=== PATIENT | male | born 2000 | race Caucasian/White ===

== ENCOUNTER 2023-10-26 17:47 | Outpatient (CLI) | payer OTHER, SELFPAY | END 2023-10-26 17:48 | disposition home or self-care (01) | PROVIDERS: PCP Family Medicine; Visit Provider Family Medicine | DX: Z00.00 Encounter for general adult medical examination without abnormal findings (principal); R03.0 Elevated blood-pressure reading, without diagnosis of hypertension; F41.9 Anxiety disorder, unspecified; D61.818 Other pancytopenia; Z11.3 Encounter for screening for infections with a predominantly sexual mode of transmission; Z13.6 Encounter for screening for cardiovascular disorders | CPT/HCPCS: 80048; 80061; 86703; 87491; 87591 ==

== ENCOUNTER 2024-09-04 21:53 | Emergency (ER) | payer OTHER, SELFPAY ==
[2024-09-04 22:08] VITALS: BP 152/109; PULSE 113; RESP 22; TEMP 37.4; O2SAT 97; BMI 26.5
--- NOTE | 2024-09-04 22:58 | ED.PSYCH ---
HPI - Psych General Date Seen: 09/04/24 <Talon Sands MD - Last Filed: 09/06/24 08:31> Chief Complaint: Psychiatric Problem/Disorder <Talon Sands MD - Last Filed: 09/06/24 08:31> Stated Complaint: mental health <Talon Sands MD - Last Filed: 09/06/24 08:31> Time Seen by Provider: 09/04/24 22:11 <Talon Sands MD - Last Filed: 09/06/24 08:31> Source: patient, family, RN notes reviewed and old records reviewed <Talon Sands MD - Last Filed: 09/06/24 08:31> Mode of arrival: ambulatory <Talon Sands MD - Last Filed: 09/06/24 08:31> Limitations: no limitations <Talon Sands MD - Last Filed: 09/06/24 08:31> History of Present Illness HPI Narrative: Patient is a 24-year-old [employer] student, brought in by his mother, over increasingly bizarre behavior over the past 10 days to 2 weeks. 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 At that point he did comment to her that he may end at all, by using a combination of alcohol and melatonin. He did convince her enough that he could go back to campus, where he lives with his 2 roommates. He has been drinking alcohol a fair bit over the past few weeks, although it is unknown exactly how much it was. 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 Here he has very stands insult thoughts, pressured speech admits to me he was suicidal 2-3 days ago with because his roommates were to with him he never thought about committing suicide. He tells me he predicted this the [employer] score, and also that the [employer] kick her Jason Bullock will come here to talk to him. Understands that there is something wrong, and is willing to give blood and urine in fact he offered to give a sperm sample also. He has voluntary Past history of anxiety, and depression with a suicidal gesture when he was 11 years old, which he was hospitalized at [facility] when he tried to the choke himself to with the cord from a joystick, after his father of cancer. 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 Was initially yelling in the waiting room, but then calmed down. Mother is interviewed, she is very concerned about his increasingly bizarre behavior, she has never witnessed this before from him, no family history of bipolar disorder, the maternal father however had some issues where he was on medication but they all said that was just because he was in [place]. <Talon Sands MD - Last Filed: 09/06/24 08:31> MD complaint: altered mental status <Talon Sands MD - Last Filed: 09/06/24 08:31> Onset (ago): week(s) <Talon Sands MD - Last Filed: 09/06/24 08:31> Duration: constant, changing over time and getting worse <Talon Sands MD - Last Filed: 09/06/24 08:31> History of same: No <Talon Sands MD - Last Filed: 09/06/24 08:31> Relieving factors: none <Talon Sands MD - Last Filed: 09/06/24 08:31> Exacerbating factors: none <Talon Sands MD - Last Filed: 09/06/24 08:31> Context: significant life stressor <Talon Sands MD - Last Filed: 09/06/24 08:31> Associated psychiatric symptoms: suicidal ideation, racing thoughts and delusions <Talon Sands MD - Last Filed: 09/06/24 08:31> Associated symptoms: denies other symptoms <Talon Sands MD - Last Filed: 09/06/24 08:31> Treatments prior to arrival: none <Talon Sands MD - Last Filed: 09/06/24 08:31> If self harm: admits thoughts of self harm and has plan <Talon Sands MD - Last Filed: 09/06/24 08:31> Related Data Home Medications: Previous Rx's ?Medication ?Instructions ?Recorded sertraline 50 mg tablet (Zoloft) 50 mg PO QDAY #30 tabs 10/26/23 <Talon Sands MD - Last Filed: 09/06/24 08:31> Allergies/Adverse Reactions: Allergies Allergy/AdvReac Type Severity Reaction Status Date / Time No Known Drug Allergies Allergy Unverified 11/17/23 10:13 <Talon Sands MD - Last Filed: 09/06/24 08:31> Review of Systems Status of ROS: Reports: 10 or more systems reviewed and unremarkable except as noted in History and below <Talon Sands MD - Last Filed: 09/06/24 08:31> PFSH PFSH Social History: Social History Little interest or pleasure in doing things: not at all Feeling down, depressed, or hopeless: not at all <Talon Sands MD - Last Filed: 09/06/24 08:31> Exam Narrative: Exam Narrative: On examination with nurse Iwona present, he follows commands good, alert oriented x3, GCS is 15/15, nose time in place. Pupils are equal round reactive to light no scleral icterus redness there is no nystagmus, no evidence of head injury or bruising noted over his cranial region, is TMs are normal bilaterally, good hydration status, neck is supple no evidence of meningismus no lymphadenopathy, thyroid normal midline palpable not enlarged, chest is good air entry bilaterally with no wheezing crackles noted, easy respirations, heart sounds no clicks murmurs or gallops, abdomen is soft there is no organomegaly, scaphoid, bowel sounds are normal, no CVA tenderness no evidence of any tremor, moves all extremities independently and well, no evidence on the skin of any signs of IV drug use, Pressured speech, with tangential thoughts, and thinking that the [employer] kicker is going to come here.. Given my exam and hx and pending lab tests if ok, with reasonable certainity there is a low chance that this problem is caused by a physical or chemical reason. Thus the patient is medically cleared. <Talon Sands MD - Last Filed: 09/06/24 08:31> Const: Vital Signs, click to edit/add: Vital Signs - 24 hr 09/04/24 22:08 09/05/24 01:06 Temperature 99.3 F Pulse Rate [Left P ulse Oximeter] 113 H 84 Respiratory Rate 22 18 Blood Pressure [Ri ght Upper Arm] 152/109 H 114/78 Pulse Oximetry 97 97 Oxygen Delivery Me thod Room Air Room Air <Talon Sands MD - Last Filed: 09/06/24 08:31> Vital Signs, click to edit/add: Vital Signs - 24 hr 09/04/24 22:08 09/05/24 01:06 Temperature 99.3 F Pulse Rate [Left P ulse Oximeter] 113 H 84 Respiratory Rate 22 18 Blood Pressure [Ri ght Upper Arm] 152/109 H 114/78 Pulse Oximetry 97 97 Oxygen Delivery Me thod Room Air Room Air <Zaid Rodgers MD - Last Filed: 09/05/24 03:00> Documenting provider has reviewed patient's vital signs: yes <Talon Sands MD - Last Filed: 09/06/24 08:31> Course Reevaluation(s) Time of Reevaluation #1: 02:57 <Zaid Rodgers MD - Last Filed: 09/05/24 03:00> Reevaluation #1: Patient accepted in sign-out at change of shift. Patient has been accepted to [facility] with plan for transfer in the morning. <Zaid Rodgers MD - Last Filed: 09/05/24 03:00> Vital Signs Vital signs: Initial Vital Signs Temperature 99.3 F 09/04/24 22:08 Temperature Source Temporal Artery Scan 09/04/24 22:08 Pulse Rate 113 H 09/04/24 22:08 Pulse Rhythm Regular 09/04/24 22:08 Respiratory Rate 22 09/04/24 22:08 Blood Pressure 152/109 H 09/04/24 22:08 Blood Pressure Mean 123 H 09/04/24 22:08 Blood Pressure Position Sitting 09/04/24 22:08 Pulse Oximetry 97 09/04/24 22:08 Oxygen Delivery Method Room Air 09/04/24 22:08 Vital Signs Temperature 99.3 F 09/04/24 22:08 Pulse Rate 113 H 09/04/24 22:08 Respiratory Rate 22 09/04/24 22:08 Blood Pressure 152/109 H 09/04/24 22:08 Pulse Oximetry 97 09/04/24 22:08 Oxygen Delivery Method Room Air 09/04/24 22:08 Temperature 97.7 F 09/05/24 07:40 Pulse Rate 86 09/05/24 07:40 Respiratory Rate 18 09/05/24 07:40 Blood Pressure 122/68 09/05/24 07:40 Pulse Oximetry 99 09/05/24 07:40 Oxygen Delivery Method Room Air 09/05/24 07:40 <Talon Sands MD - Last Filed: 09/06/24 08:31> Initial Vital Signs Temperature 99.3 F 09/04/24 22:08 Temperature Source Temporal Artery Scan 09/04/24 22:08 Pulse Rate 113 H 09/04/24 22:08 Pulse Rhythm Regular 09/04/24 22:08 Respiratory Rate 22 09/04/24 22:08 Blood Pressure 152/109 H 09/04/24 22:08 Blood Pressure Mean 123 H 09/04/24 22:08 Blood Pressure Position Sitting 09/04/24 22:08 Pulse Oximetry 97 09/04/24 22:08 Oxygen Delivery Method Room Air 09/04/24 22:08 Vital Signs Temperature 99.3 F 09/04/24 22:08 Pulse Rate 113 H 09/04/24 22:08 Respiratory Rate 22 09/04/24 22:08 Blood Pressure 152/109 H 09/04/24 22:08 Pulse Oximetry 97 09/04/24 22:08 Oxygen Delivery Method Room Air 09/04/24 22:08 Temperature 97.7 F 09/05/24 07:40 Pulse Rate 86 09/05/24 07:40 Respiratory Rate 18 09/05/24 07:40 Blood Pressure 122/68 09/05/24 07:40 Pulse Oximetry 99 09/05/24 07:40 Oxygen Delivery Method Room Air 09/05/24 07:40 <Zaid Rodgers MD - Last Filed: 09/05/24 03:00> Medications Administered Medications: Discontinued Medications Generic Name Dose Route Start Last Admin Trade Name Freq PRN Reason Stop Dose Admin Olanzapine 10 mg 09/04/24 22:57 09/04/24 23:15 Olanzapine 5 Mg/Ml Inj IM 09/04/24 22:58 10 mg ONCE ONE Administration <Talon Sands MD - Last Filed: 09/06/24 08:31> Discontinued Medications Generic Name Dose Route Start Last Admin Trade Name Freq PRN Reason Stop Dose Admin Olanzapine 10 mg 09/04/24 22:57 09/04/24 23:15 Olanzapine 5 Mg/Ml Inj IM 09/04/24 22:58 10 mg ONCE ONE Administration <Zaid Rodgers MD - Last Filed: 09/05/24 03:00> MDM - Psych MDM Narrative Medical decision making narrative: Multiple differential diagnoses were considered for altered mental status. The life-threatening differential diagnosis considered include: Meningitis/encephalitis, bacteremia, subdural, cerebrovascular accident, SAH, and hypertensive encephalopathy. Other differential diagnosis included include medication effect, hypoxia, hypoglycemia, hypercalcemia, hypo or hypernatremia, hypothyroidism, hepatic encephalopathy, carbon monoxide poisoning, UTI, pneumonia, depression, seizure, as well as other etiologies. Differential diagnosis includes but is not limited life-threatening diagnosis is of severe depression with suicidal plan, chemical intoxication with suicidal ideation and risk of self-harm, schizoaffective disorder with risk of self-harm, bipolar disorder with severe depressive phase and risk of self-harm, personality disorder with risk of self-harm, depression due to hyperthyroidism, metabolic derangement, or CARPENTRY TEACHER abnormality new Patient agreed for blood tests and urine, I explained to him about medications after discussion with him a medications he was willing to take some I think IM Zyprexa would be a fine choice here. We will endeavor to get placement for him, I will sign him over to my partner oncoming for further disposition and review of the laboratory test <Talon Sands MD - Last Filed: 09/06/24 08:31> Differential Diagnosis Differential diagnosis: Likely acute psychosis, chronic schizophrenia, suicidal ideation, bipolar disorder, depression, drug-induced psychotic disorder and acute anxiety <Talon Sands MD - Last Filed: 09/06/24 08:31> Medical Records Attestation: I reviewed the patient's medical records. <Talon Sands MD - Last Filed: 09/06/24 08:31> Medical records narrative: There is a history of anxiety, he was prescribe Zoloft in the past but never took this according to his mother. <Talon Sands MD - Last Filed: 09/06/24 08:31> Lab Data Labs: Lab Results 09/04/24 09/04/24 09/04/24 Range/Units 22:55 23:10 23:51 WBC 9.25 (4.50-11.00) K/uL RBC 5.22 (4.30-5.90) m/uL Hgb 15.2 (13.5-17.5) gm/dL Hct 43.3 (37.0-53.0) % MCV 83 (80-100) fL MCH 29 (26-34) pg MCHC 35 (32-36) gm/dL RDW Coeff of Lynsey 13.0 (11.5-15.5) % Plt Count 239 (140-440) K/uL Neut % (Auto) 72.5 H (42.0-72.0) % Lymph % (Auto) 15.7 L (20-44) % [place] % (Auto) 10.6 (0.0-11.0) % Eos % (Auto) 0.0 (0.0-7.0) % Baso % (Auto) 0.2 (0.0-3.0) % Neut # (Auto) 6.70 (1.7-7.0) K/uL Lymph # (Auto) 1.50 (0.90-2.90) K/uL [place] # (Auto) 1.00 H (0.00-0.90) K/UL Eos # (Auto) 0.00 (0.00-0.50) K/uL Baso # (Auto) 0.02 (0.00-0.30) K/uL Abs Immat Gran (auto) 0.09 (0.00-0.30) K/uL Imm/Tot Granulo (auto) 1.0 % Sodium 136 (135-149) mmol/L Potassium 3.4 L (3.6-5.1) mmol/L Chloride 100 (96-114) mmol/L Carbon Dioxide 24 (20-32) mmol/L Anion Gap 12 (7-15) mEq/L BUN 9 (5-24) mg/dL Creatinine 0.9 (0.5-1.5) mg/dL Estimated Creat Clear 132.93 Estimated GFR 124 ml/min Glucose 97 (60-115) mg/dL Calcium 9.4 (8.4-10.6) mg/dL Total Bilirubin 1.1 (0.1-1.5) mg/dL Direct Bilirubin 0.3 (0.0-0.5) mg/dL AST 34 (12-35) U/L ALT 35 (4-50) U/L Alkaline Phosphatase 58 (40-150) U/L Total Protein 8.1 (6.0-8.3) g/dL Albumin 5.1 H (3.3-5.0) g/dL TSH 1.320 (0.270-4.20) uIU/mL Urine Opiates Screen Negative (Negative) Ur Oxycodone Screen Negative (Negative) Urine Methadone Screen Negative (Negative) Acetaminophen < 10.0 L (10.0-30.0) ug/mL Ur Barbiturates Screen Negative (Negative) U Tricyclic Antidepress Negative (Negative) Ur Phencyclidine Scrn Negative (Negative) Ur Amphetamines Screen Negative (Negative) U Methamphetamines Scrn Negative (Negative) U Benzodiazepines Scrn Negative (Negative) Urine Cocaine Screen Negative (Negative) U Marijuana (THC) Screen Negative (Negative) Ur Drug Screen Comment See Note Ethyl Alcohol < 0.01 L (0.01-0.03) % Lab Acknowledgement Test Added <Talon Sands MD - Last Filed: 09/06/24 08:31> Lab Results 09/04/24 09/04/24 09/04/24 Range/Units 22:55 23:10 23:51 WBC 9.25 (4.50-11.00) K/uL RBC 5.22 (4.30-5.90) m/uL Hgb 15.2 (13.5-17.5) gm/dL Hct 43.3 (37.0-53.0) % MCV 83 (80-100) fL MCH 29 (26-34) pg MCHC 35 (32-36) gm/dL RDW Coeff of Lynsey 13.0 (11.5-15.5) % Plt Count 239 (140-440) K/uL Neut % (Auto) 72.5 H (42.0-72.0) % Lymph % (Auto) 15.7 L (20-44) % [place] % (Auto) 10.6 (0.0-11.0) % Eos % (Auto) 0.0 (0.0-7.0) % Baso % (Auto) 0.2 (0.0-3.0) % Neut # (Auto) 6.70 (1.7-7.0) K/uL Lymph # (Auto) 1.50 (0.90-2.90) K/uL [place] # (Auto) 1.00 H (0.00-0.90) K/UL Eos # (Auto) 0.00 (0.00-0.50) K/uL Baso # (Auto) 0.02 (0.00-0.30) K/uL Abs Immat Gran (auto) 0.09 (0.00-0.30) K/uL Imm/Tot Granulo (auto) 1.0 % Sodium 136 (135-149) mmol/L Potassium 3.4 L (3.6-5.1) mmol/L Chloride 100 (96-114) mmol/L Carbon Dioxide 24 (20-32) mmol/L Anion Gap 12 (7-15) mEq/L BUN 9 (5-24) mg/dL Creatinine 0.9 (0.5-1.5) mg/dL Estimated Creat Clear 132.93 Estimated GFR 124 ml/min Glucose 97 (60-115) mg/dL Calcium 9.4 (8.4-10.6) mg/dL Total Bilirubin 1.1 (0.1-1.5) mg/dL Direct Bilirubin 0.3 (0.0-0.5) mg/dL AST 34 (12-35) U/L ALT 35 (4-50) U/L Alkaline Phosphatase 58 (40-150) U/L Total Protein 8.1 (6.0-8.3) g/dL Albumin 5.1 H (3.3-5.0) g/dL TSH 1.320 (0.270-4.20) uIU/mL Urine Opiates Screen Negative (Negative) Ur Oxycodone Screen Negative (Negative) Urine Methadone Screen Negative (Negative) Acetaminophen < 10.0 L (10.0-30.0) ug/mL Ur Barbiturates Screen Negative (Negative) U Tricyclic Antidepress Negative (Negative) Ur Phencyclidine Scrn Negative (Negative) Ur Amphetamines Screen Negative (Negative) U Methamphetamines Scrn Negative (Negative) U Benzodiazepines Scrn Negative (Negative) Urine Cocaine Screen Negative (Negative) U Marijuana (THC) Screen Negative (Negative) Ur Drug Screen Comment See Note Ethyl Alcohol < 0.01 L (0.01-0.03) % Lab Acknowledgement Test Added <Zaid Rodgers MD - Last Filed: 09/05/24 03:00> ECG Data Attestation: I personally reviewed and interpreted this ECG as follows: <Talon Sands MD - Last Filed: 09/06/24 08:31> ECG interpretation date: 09/04/24 <Talon Sands MD - Last Filed: 09/06/24 08:31> Prior ECG tracings: not available for review <Talon Sands MD - Last Filed: 09/06/24 08:31> Interpretation: EKG shows normal sinus rhythm, with a QRS of 96, QT of 352 and a QTC of 418, ventricular rates 85, assessment normal EKG <Talon Sands MD - Last Filed: 09/06/24 08:31> Discharge Plan Discharge Clinical Impression: Leah <Talon Sands MD - Last Filed: 09/06/24 08:31> Patient Disposition: Xfer Psychiatric [facility]osp <Talon Sands MD - Last Filed: 09/06/24 08:31> Prescriptions: No Action sertraline [Zoloft] 50 mg tablet 50 mg PO QDAY Qty: 30 1RF <Talon Sands MD - Last Filed: 09/06/24 08:31> Stand Alone Forms: My[facility] Info Instructions <Talon Sands MD - Last Filed: 09/06/24 08:31>
[2024-09-04] MEDS: OLANZapine 5 MG/ML inj 10 MG IM (23:15)
[2024-09-04 23:30] LABS: Basophils Absolute Auto 0.02 K/uL (0.00-0.30); Basophils Percent Auto 0.2 % (0.0-3.0); Hematocrit 43.3 % (37.0-53.0); Hemoglobin* 15.2 gm/dL (13.5-17.5); Immature Granulocytes Abs Auto 0.09 K/uL (0.00-0.30); Lymphocytes Percent Auto 15.7 % (20-44); Mean Corpuscular HGB Conc 35 gm/dL (32-36); Mean Corpuscular Hemoglobin 29 pg (26-34); Mean Corpuscular Volume 83 fL (80-100); Monocytes Percent Auto 10.6 % (0.0-11.0); Neutrophils Percent Auto 72.5 % (42.0-72.0); Platelet Count* 239 K/uL (140-440); Red Blood Count 5.22 m/uL (4.30-5.90); White Blood Count* 9.25 K/uL (4.50-11.00)
[2024-09-04 23:37] LABS: Amphetamine Screen Urine Negative (Negative); Barbiturate Screen Urine Negative (Negative); Benzodiazepines Screen Urine Negative (Negative); Cannabinoid Screen Urine Negative (Negative); Cocaine Screen Urine Negative (Negative); Methadone Screen Urine Negative (Negative); Methamphetamines Screen Urine Negative (Negative); Opiate Screen Urine Negative (Negative); Oxycodone Screen Urine Negative (Negative); Phencyclidine Screen Urine Negative (Negative); Tricyclic Antidepressant Urine Negative (Negative)
--- NOTE | 2024-09-04 23:40 | ED.NURSE ---
Pt received injection of medication and was also given a warm blanket. Pt getting EKG checked at this time, no further c/o of pain.
[2024-09-04 23:43] LABS: Slide Review Reflex No
--- NOTE | 2024-09-04 23:45 | ED.NURSE ---
Pt compliant with blood work and all cares at this time. Pt given a warm blanket for comfort.
[2024-09-04 23:50] LABS: Albumin* 5.1 g/dL (3.3-5.0); Chloride* 100 mmol/L (96-114)
[2024-09-04 23:51] LABS: Potassium* 3.4 mmol/L (3.6-5.1); Sodium* 136 mmol/L (135-149)
[2024-09-04 23:53] LABS: Alkaline Phosphatase* 58 U/L (40-150); Anion Gap 12 mEq/L (7-15); Aspartate Amino Transferase* 34 U/L (12-35); Bilirubin Direct* 0.3 mg/dL (0.0-0.5); Bilirubin Total* 1.1 mg/dL (0.1-1.5); Blood Urea Nitrogen* 9 mg/dL (5-24); Carbon Dioxide* 24 mmol/L (20-32); Creatinine* 0.9 mg/dL (0.5-1.5); Est. Creatinine Clearance* 132.93; Estimated Glomerular Filt Rate 124 ml/min; Glucose* 97 mg/dL (60-115); Total Protein* 8.1 g/dL (6.0-8.3)
[2024-09-04 23:54] LABS: Alanine Aminotransferase* 35 U/L (4-50); Calcium* 9.4 mg/dL (8.4-10.6)
[2024-09-04 23:59] LABS: Acetaminophen* < 10.0 ug/mL (10.0-30.0)
[2024-09-05 00:11] LABS: Ethanol* < 0.01 % (0.01-0.03)
[2024-09-05 01:06] VITALS: BP 114/78; PULSE 84; RESP 18; O2SAT 97
[2024-09-05 07:40] VITALS: BP 122/68; PULSE 86; RESP 18; TEMP 36.5; O2SAT 99
== END 2024-09-05 08:55 ==
PROVIDERS: Emergency Provider Family Medicine; PCP Family Medicine
DX: F30.9 Manic episode, unspecified (principal)
CPT/HCPCS: 36415; 80048; 80076; 80143; 80306; 82077; 84443; 85025; 93005; 99284

== ENCOUNTER 2024-11-03 22:03 | Outpatient (REF) | payer OTHER, SELFPAY ==
[2024-11-03 23:06] LABS: Chloride* 105 mmol/L (96-114); Potassium* 5.1 mmol/L (3.6-5.1); Sodium* 140 mmol/L (135-149)
[2024-11-03 23:09] LABS: Anion Gap 9 mEq/L (7-15); Blood Urea Nitrogen* 23 mg/dL (5-24); Carbon Dioxide* 26 mmol/L (20-32); Creatinine* 1.1 mg/dL (0.5-1.5); Estimated Glomerular Filt Rate 97 ml/min; Glucose* 119 mg/dL (60-115)
[2024-11-03 23:10] LABS: Calcium* 9.6 mg/dL (8.4-10.6)
[2024-11-03 23:26] LABS: Free T4 Free Thyroxine* 0.94 ng/dL (0.70-1.85)
[2024-11-05 20:52] LABS: Lithium, Serum or Plasma 0.4 mmol/L (0.5-1.2)
== END 2024-11-03 22:04 | disposition home or self-care (01) ==
LOC: NPINS 22:03
PROVIDERS: PCP Family Medicine; Visit Provider Nurse Practitioner Psychiatric/Mental Health
DX: F31.81 Bipolar II disorder (principal); Z79.899 Other long term (current) drug therapy
CPT/HCPCS: 80048; 80178; 84439; 84443

== ENCOUNTER 2024-12-15 11:39 | Outpatient (CLI) | payer OTHER, SELFPAY ==
[2024-12-15 21:40] LABS: Chloride* 103 mmol/L (96-114); Sodium* 142 mmol/L (135-149)
[2024-12-15 21:41] LABS: Potassium* 4.5 mmol/L (3.6-5.1)
[2024-12-15 21:43] LABS: Estimated Glomerular Filt Rate 109 ml/min
[2024-12-15 21:44] LABS: Anion Gap 12 mEq/L (7-15); Blood Urea Nitrogen* 19 mg/dL (5-24); Calcium* 9.6 mg/dL (8.4-10.6); Carbon Dioxide* 27 mmol/L (20-32); Glucose* 104 mg/dL (60-115)
[2024-12-15 22:01] LABS: Free T4 Free Thyroxine* 0.81 ng/dL (0.70-1.85)
[2024-12-18 03:13] LABS: Lithium, Serum or Plasma 0.7 mmol/L (0.5-1.2)
== END 2024-12-15 11:40 | disposition home or self-care (01) ==
LOC: NPINS 11:41
PROVIDERS: PCP Family Medicine; Visit Provider Nurse Practitioner Psychiatric/Mental Health
DX: F31.81 Bipolar II disorder (principal); Z79.899 Other long term (current) drug therapy
CPT/HCPCS: 80048; 80178; 84439; 84443

== ENCOUNTER 2025-01-16 12:09 | Outpatient (CLI) | payer OTHER, SELFPAY | END 2025-01-16 12:10 | disposition home or self-care (01) | LOC: LKVREF 12:11 | PROVIDERS: PCP Family Medicine; Visit Provider Family Medicine | DX: Z79.899 Other long term (current) drug therapy (principal) | CPT/HCPCS: 80053 ==

== ENCOUNTER 2025-02-06 10:25 | Outpatient (CLI) | payer OTHER, SELFPAY ==
[2025-02-06 13:58] LABS: Chloride* 103 mmol/L (96-114); Potassium* 4.1 mmol/L (3.6-5.1); Sodium* 141 mmol/L (135-149)
[2025-02-06 14:01] LABS: Anion Gap 8 mEq/L (7-15); Blood Urea Nitrogen* 12 mg/dL (5-24); Carbon Dioxide* 30 mmol/L (20-32); Creatinine* 1.2 mg/dL (0.5-1.5); Estimated Glomerular Filt Rate 88 ml/min
[2025-02-06 14:02] LABS: Calcium* 9.6 mg/dL (8.4-10.6); Glucose* 95 mg/dL (60-115)
[2025-02-07 11:38] LABS: Lithium, Serum or Plasma 0.9 mmol/L (0.5-1.2)
== END 2025-02-06 10:26 | disposition home or self-care (01) ==
LOC: NPINS 10:26
PROVIDERS: PCP Family Medicine; Visit Provider Nurse Practitioner Psychiatric/Mental Health
DX: F31.81 Bipolar II disorder (principal)
CPT/HCPCS: 80048; 80178; 84443

== ENCOUNTER 2025-05-16 16:00 | Outpatient (CLI) | payer OTHER, SELFPAY ==
[2025-05-16 22:01] LABS: Chloride* 102 mmol/L (96-114); Potassium* 4.2 mmol/L (3.6-5.1); Sodium* 140 mmol/L (135-149)
[2025-05-16 22:04] LABS: Anion Gap 9 mEq/L (7-15); Blood Urea Nitrogen* 15 mg/dL (5-24); Calcium* 9.8 mg/dL (8.4-10.6); Carbon Dioxide* 29 mmol/L (20-32); Creatinine* 1.0 mg/dL (0.5-1.5); Estimated Glomerular Filt Rate 108 ml/min; Glucose* 98 mg/dL (60-115)
[2025-05-16 22:23] LABS: Free T4 Free Thyroxine* 0.93 ng/dL (0.70-1.85)
--- OUTSIDE RECORDS SUMMARY | 2025-05-17 00:37 | XMS_ITS | Clinical Summary ---
Author Organization [facility] Address [address] [place] [id number] Care Team Providers Care Labour Market Economist Name Role Phone Jose E Minor MD Primary Care Provider [phone] Allergies No known active allergies Medications cephalexin (KEFLEX) 500 mg capsuleIndication s:pharyngitis due to Streptococcus pyogenes Take 500 mg by mouth 3 times daily. 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[employer] Gender Identity Not on file Sexual Orientation Not on file Obstetrics History Last Filed Vital Signs Vital Sign Reading Time Taken Comments Blood Pressure 118/63 03/27/2021 3:21 PM CDT Pulse 84 03/27/2021 3:20 PM CDT Temperature 36.7 C (98.1 F) 10/03/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 Respiratory Rate 16 03/27/2021 3:20 PM CDT Oxygen Saturation 97% 03/27/2021 3:20 PM CDT Inhaled Oxygen Concentration - - Weight 79.4 kg (175 lb) 03/27/2021 3:20 PM CDT Height 180.3 cm (5' 11) 03/27/2021 3:20 PM CDT Body Mass Index 24.41 03/27/2021 3:20 PM CDT Plan of Treatment Not on file Insurance [place] [employer] [facility] [employer] Advance Directives * Full Code (Latest Code Status on File) Date Activated Date Inactivated Comments 10/01/2011 7:11 AM 10/03/2011 7:20 PM Care Teams Labour Market Economist Relationship Specialty Start Date End Date Jose E Minor MD [id number] [place] [address] PCP - General Family Practice 03/27/21
== END 2025-05-16 16:01 | disposition home or self-care (01) ==
LOC: NPINS 16:01
PROVIDERS: PCP Family Medicine; Visit Provider Nurse Practitioner Psychiatric/Mental Health
DX: F31.81 Bipolar II disorder (principal); Z79.899 Other long term (current) drug therapy
CPT/HCPCS: 80048; 80178; 84439; 84443

== ENCOUNTER 2025-06-08 14:24 | Outpatient (CLI) | payer OTHER, SELFPAY | END 2025-06-08 14:25 | disposition home or self-care (01) | LOC: NFLDREF 06-09 07:55 | PROVIDERS: PCP Family Medicine; Referring Provider Family Medicine; Visit Provider Family Medicine | DX: B35.1 Tinea unguium (principal); Z79.899 Other long term (current) drug therapy | CPT/HCPCS: 80061; 80076 ==

== ENCOUNTER 2025-07-07 10:53 | Outpatient (CLI) | payer OTHER, SELFPAY ==
[2025-07-07 22:00] LABS: Chloride* 103 mmol/L (96-114)
[2025-07-07 22:01] LABS: Potassium* 4.4 mmol/L (3.6-5.1); Sodium* 138 mmol/L (135-149)
[2025-07-07 22:04] LABS: Anion Gap 9 mEq/L (7-15); Blood Urea Nitrogen* 9 mg/dL (5-24); Calcium* 9.8 mg/dL (8.4-10.6); Carbon Dioxide* 26 mmol/L (20-32); Creatinine* 0.9 mg/dL (0.5-1.5); Estimated Glomerular Filt Rate 123 ml/min; Glucose* 90 mg/dL (60-115)
[2025-07-07 22:13] LABS: Free T4 Free Thyroxine* 1.03 ng/dL (0.70-1.85)
== END 2025-07-07 10:54 | disposition home or self-care (01) ==
LOC: NPINS 10:55
PROVIDERS: PCP Family Medicine; Visit Provider Nurse Practitioner Psychiatric/Mental Health
DX: F31.9 Bipolar disorder, unspecified (principal); Z79.899 Other long term (current) drug therapy
CPT/HCPCS: 80048; 80178; 84439; 84443